=== PATIENT | female | born 1960 | race Caucasian/White ===

== ENCOUNTER 2018-07-27 16:14 | Emergency (ER) | payer OTHER ==
[~2018-07-27] VITALS: Ht 167.6 cm; Wt 73.5 kg
[2018-07-27 16:23] VITALS: Ht 167.6 cm; Wt 73.5 kg
[2018-07-27 17:42] VITALS: BP 109/61
[2018-07-27 17:45] LABS: CALCIUM 9.2 mg/dL (8.5-10.1); CARBON DIOXIDE 32.2 mmol/L (21-32); CREATININE SERUM 1.3 mg/dL (0.6-1.0); POTASSIUM SERUM 4.2 mmol/L (3.5-5.1)
== END 2018-07-27 18:25 | disposition home or self-care (01) ==
LOC: ED 16:14
PROVIDERS: Emergency Medicine
DX: R00.2 Palpitations (principal); F41.9 Anxiety disorder, unspecified; Z88.0 Allergy status to penicillin; Z88.1 Allergy status to other antibiotic agents